=== PATIENT | male | born 1950 | race Caucasian/White ===

== ENCOUNTER → 2018-03-05 | Outpatient (CLI) | payer OTHER ==
[~2018-03-05] MED LIST: AMLO5TAB4 PO; ASPI-621 PO; ATOR20TA9 PO; BUPR150T73 PO; DULO60CA7 PO; FLUT9.9S INH; HYDR25TA6 PO; LEVO88TA4 PO; METO50TA4 PO
== END | disposition home or self-care (01) ==
LOC: CFH 09:18
PROVIDERS: ATTEND Nurse Practitioner Family
DX: Z12.2 Encounter for screening for malignant neoplasm of respiratory organs (principal); F17.210 Nicotine dependence, cigarettes, uncomplicated
CPT/HCPCS: 93978; G0297

== ENCOUNTER → 2018-03-19 | Outpatient (CLI) | payer BC, OTHER | END | disposition home or self-care (01) | LOC: CFH 13:43 | PROVIDERS: ATTEND Physician Assistant | DX: I07.1 Rheumatic tricuspid insufficiency (principal); I35.8 Other nonrheumatic aortic valve disorders; I10 Essential (primary) hypertension; E78.5 Hyperlipidemia, unspecified; Z95.0 Presence of cardiac pacemaker; Z72.0 Tobacco use | CPT/HCPCS: 93306 ==

== ENCOUNTER 2018-05-29 09:23 | Observation (INO) | payer OTHER ==
[~2018-05-29] VITALS: Ht 180.3 cm; Wt 92.2 kg
[2018-05-29] MEDS ORDERED: NITROGLYCERIN SINGLE TAB 0.4 MG SL ONE (09:54)
[2018-05-29] MEDS ORDERED: ASPIRIN 81 MG TABLET CHEW ONE (09:54)
[2018-05-29] MEDS: NITROGLYCERIN SINGLE TAB 0.4 MG SL PRN ×3 (09:56→10:07)
[2018-05-29] MEDS ORDERED: ASPIRIN 81 MG TABLET CHEW PO ONE (10:00)
[2018-05-29] MEDS ORDERED: SODIUM CHLORIDE FLUSH 10ML SYR IVF ONE (10:00)
[2018-05-29 10:25] LABS: BASOPHILS # (AUTO) 0.03 x10^3/uL (0-0.1); BASOPHILS % (AUTO) 0 % (0-1); EOSINOPHILS # (AUTO) 0.09 x10^3/uL (0-0.4); EOSINOPHILS % (AUTO) 1 % (1-7); LYMPHOCYTES # (AUTO) 1.62 x10^3/uL (1-3.4); LYMPHOCYTES % (AUTO) 19 % (22-44); MD NO; MEAN CORPUSCULAR HEMOGLOBIN 29.7 pg (27.5-34.5); MEAN CORPUSCULAR HGB CONC 34.3 g/dL (33.2-36.2); MEAN CORPUSCULAR VOLUME 86.7 fL (81-97); MEAN PLATELET VOLUME 8.5 fL (7.4-10.4); MONOCYTES # (AUTO) 0.54 x10^3/uL (0.2-0.8); MONOCYTES % (AUTO) 6 % (2-9); NEUTROPHILS # (AUTO) 6.22 x10^3/uL (1.8-6.8); NEUTROPHILS % (AUTO) 73 % (42-75); PLATELET COUNT 187 x10^3/uL (130-400); RED CELL DISTRIBUTION WIDTH 14.1 % (9.4-14.8)
[2018-05-29 10:31] LABS: ALBUMIN 4.3 g/dL (3.4-5.0); ANION GAP 9 mmol/L (5-15); CALCIUM 8.4 mg/dL (8.5-10.1); CHLORIDE 106 mmol/L (98-107)
[2018-05-29 10:36] LABS: ALANINE AMINOTRANSFERASE 19 U/L (12-78); ALKALINE PHOSPHATASE 120 U/L (45-117); BILIRUBIN,TOTAL 0.5 mg/dL (0.2-1.0); CREATININE 1.25 mg/dL (0.7-1.3); TOTAL PROTEIN 7.6 g/dL (6.4-8.2); TROPONIN I < 0.015 ng/mL (0.000-0.045)
[2018-05-29 10:39] LABS: INTERNATIONAL NORMALIZED RATIO 1.04 (0.93-1.1); PROTHROMBIN TIME 10.7 Seconds (9.6-11.5)
[2018-05-29] MEDS ORDERED: SODIUM CHLORIDE FLUSH 10ML SYR IVF PRN (12:00)
[2018-05-29 12:21] VITALS: BP 147/87
[2018-05-29] MEDS ORDERED: ACETAMINOPHEN 325 MG TABLET ONE (12:26)
[2018-05-29] MEDS ORDERED: HEPARIN 5,000 UNITS/ML, 1ML ONE (12:26)
[2018-05-29] MEDS ORDERED: ACETAMINOPHEN 325 MG TABLET PO PRN (12:30)
[2018-05-29] MEDS ORDERED: ONDANSETRON 2MG/ML, 2ML IVPush PRN (12:30)
[2018-05-29] MEDS ORDERED: NITROGLYCERIN 0.4 MG/SPRAY SL PRN (12:30)
[2018-05-29] MEDS ORDERED: MORPHINE SULFATE 4 MG/ML, 1ML IVPush PRN (12:30)
[2018-05-29] MEDS: HEPARIN 5,000 UNITS/ML, 1ML SQ SCH ×2 (12:33→21:43)
[2018-05-29 13:05] LABS: TROPONIN I < 0.015 ng/mL (0.000-0.045)
[2018-05-29] MEDS ORDERED: NAPR220C2 PO (15:24)
[2018-05-29] MEDS ORDERED: NICOTINE 21 MG/24 HR PATCH.TD24 TD SCH (18:00)
[2018-05-29 18:13] LABS: TROPONIN I < 0.015 ng/mL (0.000-0.045)
[2018-05-29 19:04] VITALS: BP 145/81
[2018-05-30 00:48] VITALS: BP 152/83
[2018-05-30] MEDS: HEPARIN 5,000 UNITS/ML, 1ML SQ SCH (05:03)
[2018-05-30 05:45] LABS: CHOL/HDL RATIO 4.6; LDL/HDL RATIO 3.1 (0.5-3.0)
[2018-05-30] MEDS ORDERED: ASPIRIN 325 MG TABLET EC PO SCH (06:00)
[2018-05-30] MEDS ORDERED: LEVOTHYROXINE 88 MCG TABLET PO SCH (06:00)
[2018-05-30 07:10] VITALS: BP 144/96
[2018-05-30] MEDS ORDERED: METOPROLOL SUCCINATE 50 MG TAB.ER.24H PO SCH (09:00)
[2018-05-30] MEDS ORDERED: ISOSORBIDE DINITRATE 10 MG TABLET PO SCH (09:00)
[2018-05-30] MEDS ORDERED: REGADENOSON 0.4 MG/5 ML SYRINGE ONE (09:22)
[2018-05-30] MEDS ORDERED: ISOS10TA2 PO (10:01)
[2018-05-30] MEDS ORDERED: NICO-487 TD (10:01)
[2018-05-30] MEDS ORDERED: HYDR-3341 PO (10:01)
== END 2018-05-30 12:50 | disposition home or self-care (01) ==
LOC: ED 10:15 → EDIP 11:36 → INTOOBSV 11:36 → 5SO 12:18 → DCLOUNGE 05-30 12:37
PROVIDERS: ADMIT Hospitalist; ATTEND Hospitalist
DX: R07.89 Other chest pain (principal); G47.00 Insomnia, unspecified; E03.9 Hypothyroidism, unspecified; E78.5 Hyperlipidemia, unspecified; I10 Essential (primary) hypertension; I73.9 Peripheral vascular disease, unspecified; R57.9 Shock, unspecified; Z86.73 Personal history of transient ischemic attack (TIA), and cerebral infarction without residual deficits
CPT/HCPCS: 36415; 71045; 78452; 80053; 80061; 84484; 85025; 85610; 85730; 93005; 93017; 96372; 99285; A9502; C9898; G0378; J1644; J2785

== ENCOUNTER 2018-09-12 11:47 | Emergency (ER) | payer OTHER ==
[~2018-09-12] VITALS: Ht 180.3 cm; Wt 86.0 kg
[~2018-09-12 11:47] MED LIST changes: -ASPI-621 PO; +ASPI81TA45 PO; +ATOR20TA37 PO; -ATOR20TA9 PO; +HYDR-3341 PO; +ISOS10TA2 PO; +NAPR220C2 PO; +NICO-487 TD
[2018-09-12 12:02] VITALS: BP 139/91
[2018-09-12 12:31] LABS: AMPHETAMINE SCREEN, URINE Negative (Negative); BARBITURATE SCREEN, URINE Negative (Negative); BENZODIAZEPINE SCREEN, URINE Negative (Negative); CANNABINOID SCREEN, URINE Negative (Negative); COCAINE SCREEN, URINE Negative (Negative); METHADONE SCREEN, URINE Negative (Negative); OPIATE SCREEN, URINE Negative (Negative)
[2018-09-12 12:35] LABS: BASOPHILS # (AUTO) 0.05 x10^3/uL (0-0.1); BASOPHILS % (AUTO) 1 % (0-1); EOSINOPHILS # (AUTO) 0.11 x10^3/uL (0-0.4); EOSINOPHILS % (AUTO) 2 % (1-7); LYMPHOCYTES # (AUTO) 1.32 x10^3/uL (1-3.4); LYMPHOCYTES % (AUTO) 18 % (22-44); MD NO; MEAN CORPUSCULAR HEMOGLOBIN 29.7 pg (27.5-34.5); MEAN CORPUSCULAR HGB CONC 34.3 g/dL (33.2-36.2); MEAN CORPUSCULAR VOLUME 86.8 fL (81-97); MEAN PLATELET VOLUME 8.4 fL (7.4-10.4); MONOCYTES # (AUTO) 0.49 x10^3/uL (0.2-0.8); MONOCYTES % (AUTO) 7 % (2-9); NEUTROPHILS # (AUTO) 5.39 x10^3/uL (1.8-6.8); NEUTROPHILS % (AUTO) 73 % (42-75); PLATELET COUNT 174 x10^3/uL (130-400); RED BLOOD COUNT 4.82 x10^6/uL (4.38-5.82); RED CELL DISTRIBUTION WIDTH 14.7 % (9.4-14.8)
[2018-09-12 12:44] LABS: ANION GAP 7 mmol/L (5-15); CALCIUM 8.1 mg/dL (8.5-10.1); CHLORIDE 108 mmol/L (98-107); CREATININE 1.22 mg/dL (0.7-1.3)
[2018-09-12 12:45] LABS: ALANINE AMINOTRANSFERASE 19 U/L (12-78); ALBUMIN 3.9 g/dL (3.4-5.0); SALICYLATE LEVEL 3.6 mg/dL (2.8-20.0)
[2018-09-12 12:47] LABS: ALKALINE PHOSPHATASE 105 U/L (45-117); BILIRUBIN,TOTAL 0.6 mg/dL (0.2-1.0); TOTAL PROTEIN 6.9 g/dL (6.4-8.2)
[2018-09-12 12:49] LABS: ACETAMINOPHEN < 2 mcg/mL (10-30)
== END 2018-09-12 15:13 | disposition home or self-care (01) ==
LOC: ED 12:11
DX: F32.1 Major depressive disorder, single episode, moderate (principal); E78.5 Hyperlipidemia, unspecified; Z86.73 Personal history of transient ischemic attack (TIA), and cerebral infarction without residual deficits; I10 Essential (primary) hypertension; Z95.0 Presence of cardiac pacemaker
CPT/HCPCS: 36415; 80053; 80307; 80329; 85025; 99284; G0480

== ENCOUNTER 2019-07-24 07:49 | Outpatient (CLI) | payer MEDICARE ==
[2019-07-24] MEDS ORDERED: FURO20TA3 PO (09:11)
[2019-07-24] MEDS ORDERED: HYDR-3341 PO (09:11)
[2019-07-24] MEDS ORDERED: ATOR20TA86 PO (09:11)
[2019-07-24] MEDS ORDERED: ISOS20TA58 PO (09:11)
[2019-07-24] MEDS ORDERED: VENL37.57 PO (09:11)
[2019-07-24 09:21] LABS: BASOPHILS # (AUTO) 0.04 x10^3/uL (0-0.1); BASOPHILS % (AUTO) 1 % (0-1); EOSINOPHILS # (AUTO) 0.17 x10^3/uL (0-0.4); EOSINOPHILS % (AUTO) 2 % (1-7); LYMPHOCYTES # (AUTO) 1.33 x10^3/uL (1-3.4); LYMPHOCYTES % (AUTO) 18 % (22-44); MD NO; MEAN CORPUSCULAR HEMOGLOBIN 29.6 pg (27.5-34.5); MEAN CORPUSCULAR HGB CONC 33.4 g/dL (33.2-36.2); MEAN CORPUSCULAR VOLUME 88.7 fL (81-97); MEAN PLATELET VOLUME 8.1 fL (7.4-10.4); MONOCYTES # (AUTO) 0.51 x10^3/uL (0.2-0.8); MONOCYTES % (AUTO) 7 % (2-9); NEUTROPHILS # (AUTO) 5.27 x10^3/uL (1.8-6.8); NEUTROPHILS % (AUTO) 72 % (42-75); PLATELET COUNT 171 x10^3/uL (130-400); RED BLOOD COUNT 4.69 x10^6/uL (4.38-5.82); RED CELL DISTRIBUTION WIDTH 14.2 % (9.4-14.8)
[2019-07-24 09:32] LABS: INTERNATIONAL NORMALIZED RATIO 1.04 (0.93-1.1); PROTHROMBIN TIME 10.9 Seconds (9.6-11.5)
[2019-07-24 09:38] LABS: ALANINE AMINOTRANSFERASE 16 U/L (12-78); ALBUMIN 3.7 g/dL (3.4-5.0); ANION GAP 7 mmol/L (5-15); CALCIUM 8.5 mg/dL (8.5-10.1); CHLORIDE 112 mmol/L (98-107); CREATININE 1.17 mg/dL (0.7-1.3)
[2019-07-24 09:40] LABS: ALKALINE PHOSPHATASE 106 U/L (45-117); BILIRUBIN,TOTAL 0.6 mg/dL (0.2-1.0); TOTAL PROTEIN 6.7 g/dL (6.4-8.2)
[2019-07-24 13:28] LABS: HEMOGLOBIN A1C 5.6 % (4.2-6.3)
== END 2019-07-24 23:59 | disposition home or self-care (01) ==
LOC: STAR 07:49
PROVIDERS: ATTEND Orthopaedic Surgery
DX: Z01.818 Encounter for other preprocedural examination (principal); M17.12 Unilateral primary osteoarthritis, left knee
CPT/HCPCS: 36415; 80053; 83036; 85025; 85610; 85730; 87081; 93005

== ENCOUNTER → 2019-09-09 | Outpatient (CLI) | payer MEDICARE ==
[~2019-09-09] MED LIST changes: +APIX5TAB PO; +ASPI-515 PO; +ATOR20TA86 PO; +FURO20TA3 PO; +ISOS20TA58 PO; +MELO7.5T31 PO; +METO-93 PO; +OXYC5TAB3 PO; +TRAM50TA2 PO; +VENL37.57 PO
== END | disposition home or self-care (01) ==
LOC: CFH 07:24
PROVIDERS: ATTEND Internal Medicine Cardiovascular Disease
DX: I07.1 Rheumatic tricuspid insufficiency (principal); R55 Syncope and collapse
CPT/HCPCS: 93306

== ENCOUNTER 2019-10-08 13:48 | Emergency (ER) | payer MEDICARE ==
[~2019-10-08] VITALS: Ht 180.3 cm; Wt 90.0 kg
--- NOTE | 2019-10-08 14:03 | NUR ---
BIB EMS FROM WORK. PT WITH SUDDEN ONSET OF LIGHTHEADED FEELING WITH A BREIF SHARP PAIN IN LEFT ARM. DENIES CP. EMS RPTS BP OF 180/90 AND FSBS = 81. PT ON BP, ECG, SP02 MONITORING. DR MARTINEZ AT BEDSIDE, POSTURAL BP WITH DROP IN BP OF 143/95 WHILE STANDING. PT ASSESSMENT POC DISCUSSED AND ORDERS REC'D. CALL LIGHT W/I REACH. NAD NOTED. FRIEND AT [facility].
[2019-10-08] MEDS ORDERED: LORazepam 2 MG/ML, 1ML IV ONE (14:30)
[2019-10-08 14:33] LABS: BASOPHILS # (AUTO) 0.06 x10^3/uL (0-0.1); BASOPHILS % (AUTO) 1 % (0-1); EOSINOPHILS # (AUTO) 0.16 x10^3/uL (0-0.4); EOSINOPHILS % (AUTO) 2 % (1-7); LYMPHOCYTES # (AUTO) 1.35 x10^3/uL (1-3.4); LYMPHOCYTES % (AUTO) 12 % (22-44); MD NO; MEAN CORPUSCULAR HEMOGLOBIN 27.5 pg (27.5-34.5); MEAN CORPUSCULAR HGB CONC 32.7 g/dL (33.2-36.2); MEAN CORPUSCULAR VOLUME 84.2 fL (81-97); MEAN PLATELET VOLUME 7.6 fL (7.4-10.4); MONOCYTES # (AUTO) 0.56 x10^3/uL (0.2-0.8); MONOCYTES % (AUTO) 5 % (2-9); NEUTROPHILS # (AUTO) 8.99 x10^3/uL (1.8-6.8); NEUTROPHILS % (AUTO) 81 % (42-75); PLATELET COUNT 212 x10^3/uL (130-400); RED BLOOD COUNT 4.61 x10^6/uL (4.38-5.82); RED CELL DISTRIBUTION WIDTH 15.5 % (9.4-14.8)
[2019-10-08 14:41] LABS: ALBUMIN 3.6 g/dL (3.4-5.0); ANION GAP 3 mmol/L (5-15); CALCIUM 8.7 mg/dL (8.5-10.1); CHLORIDE 108 mmol/L (98-107); CREATININE 1.13 mg/dL (0.7-1.3)
[2019-10-08] MEDS ORDERED: LORazepam 2 MG/ML, 1ML ONE (14:57)
[2019-10-08] MEDS ORDERED: SODIUM CHLORIDE FLUSH 10ML SYR IVF ONE (15:00)
[2019-10-08] MEDS ORDERED: SODIUM CHLORIDE 0.9% 1,000ML IVBOLUS ONE (15:00)
--- NOTE | 2019-10-08 15:27 | NUR ---
ASSUMED CARE OF PT FROM HELEN ROSALES.
--- NOTE | 2019-10-08 15:39 | NUR ---
Attempted to ambulated pt before d/c. Pt initally unsteady and had to catch brace himself by holding onto the counter top. Pt then was able to standy without problems. Pt denies S/Sx. Pt remains on monitors.
[2019-10-08 16:25] VITALS: BP 156/103
--- NOTE | 2019-10-08 16:25 | NUR ---
Ortho BP's done: flat 153/88 sitting 145/94 standing 156/103 Pt had steady gait when standing and denied s/sx.
--- NOTE | 2019-10-08 16:58 | NUR ---
Pt d/c'd to self care. Pt ambulatory without dizziness at this time. Education provided on follow-up, prescrptions and S/Sx to return. Pt and MANSI.
== END 2019-10-08 17:01 | disposition home or self-care (01) ==
LOC: ED 14:55
DX: E86.0 Dehydration (principal); I10 Essential (primary) hypertension; I25.10 Atherosclerotic heart disease of native coronary artery without angina pectoris; Z86.39 Personal history of other endocrine, nutritional and metabolic disease
CPT/HCPCS: 36415; 80048; 82040; 83735; 85025; 93005; 96361; 96374; 99284; J2060; J7030

== ENCOUNTER 2020-05-09 18:58 | Emergency (ER) | payer MEDICARE ==
[~2020-05-09] VITALS: Ht 180.3 cm; Wt 93.1 kg
--- NOTE | 2020-05-09 19:23 | NUR ---
THIS IS A 69Y M THAT COMES IN FOR COUGH X1DAY AFTER COVID EXPOSURE 10 DAYS AGO AT WORK. PT ABLE TO SPEAK IN FULL SENTENCES NADN. CALL LIGHT IN REACH CONNECTED TO ALL MONITORING. VSS
[2020-05-09 19:25] VITALS: BP 135/81
[2020-05-09 19:46] LABS: BASOPHILS # (AUTO) 0.04 x10^3/uL (0-0.1); BASOPHILS % (AUTO) 1 % (0-1); EOSINOPHILS # (AUTO) 0.21 x10^3/uL (0-0.4); EOSINOPHILS % (AUTO) 3 % (1-7); LYMPHOCYTES # (AUTO) 1.51 x10^3/uL (1-3.4); LYMPHOCYTES % (AUTO) 21 % (22-44); MD NO; MEAN CORPUSCULAR HEMOGLOBIN 28.7 pg (27.5-34.5); MEAN CORPUSCULAR HGB CONC 32.7 g/dL (33.2-36.2); MEAN CORPUSCULAR VOLUME 87.9 fL (81-97); MEAN PLATELET VOLUME 7.8 fL (7.4-10.4); MONOCYTES % (AUTO) 7 % (2-9); NEUTROPHILS # (AUTO) 5.06 x10^3/uL (1.8-6.8); NEUTROPHILS % (AUTO) 69 % (42-75); PLATELET COUNT 205 x10^3/uL (130-400); RED BLOOD COUNT 4.48 x10^6/uL (4.38-5.82); RED CELL DISTRIBUTION WIDTH 14.8 % (9.4-14.8)
[2020-05-09 19:59] LABS: ALBUMIN 3.3 g/dL (3.4-5.0); ANION GAP 6 mmol/L (5-15); CALCIUM 8.1 mg/dL (8.5-10.1); CHLORIDE 112 mmol/L (98-107); CREATININE 1.19 mg/dL (0.7-1.3)
[2020-05-09 20:03] LABS: TROPONIN I < 0.015 ng/mL (0.000-0.045)
--- NOTE | 2020-05-09 21:08 | NUR ---
Patient/Caregiver given discharge instructions and they have confirmed that they understand the instructions. Patient ambulatory with steady gait.
== END 2020-05-09 21:09 | disposition home or self-care (01) ==
LOC: ED 20:01
DX: R07.2 Precordial pain (principal); Z20.828 Contact with and (suspected) exposure to other viral communicable diseases; R06.00 Dyspnea, unspecified; R05 Cough; I10 Essential (primary) hypertension; E78.5 Hyperlipidemia, unspecified; I25.10 Atherosclerotic heart disease of native coronary artery without angina pectoris; F17.210 Nicotine dependence, cigarettes, uncomplicated; Z86.73 Personal history of transient ischemic attack (TIA), and cerebral infarction without residual deficits; Z95.0 Presence of cardiac pacemaker
CPT/HCPCS: 36415; 71045; 80048; 82040; 83880; 84484; 85025; 87635; 93005; 99285; 99406

== ENCOUNTER → 2020-11-09 | Outpatient (CLI) | payer MEDICARE ==
[~2020-11-09] MED LIST changes: -ASPI-515 PO; +ASPI-963 PO; -NICO-487 TD; +NICO-587 TD; -OXYC5TAB3 PO; +OXYC5TAB98 PO
== END | disposition home or self-care (01) ==
LOC: CVU 11:13
PROVIDERS: ATTEND Internal Medicine Cardiovascular Disease
DX: Z01.810 Encounter for preprocedural cardiovascular examination (principal); I08.3 Combined rheumatic disorders of mitral, aortic and tricuspid valves; I11.9 Hypertensive heart disease without heart failure
CPT/HCPCS: 93306

== ENCOUNTER 2020-12-03 07:55 | Outpatient (CLI) | payer MEDICARE ==
[~2020-12-03 07:55] MED LIST changes: +REGADENOSON 0.4 MG/5 ML SYRINGE ONE
[2020-12-31] MEDS ORDERED: METO-93 PO (13:20)
[2020-12-31] MEDS ORDERED: AMLO-150 PO (13:20)
[2020-12-31] MEDS ORDERED: RIVA20TA PO (13:20)
== END 2020-12-03 23:59 | disposition home or self-care (01) ==
LOC: CFH 07:55
PROVIDERS: ATTEND Student in an Organized Health Care Education/Training Program
DX: Z02.9 Encounter for administrative examinations, unspecified (principal)
CPT/HCPCS: J2785

== ENCOUNTER 2020-12-03 08:00 | Outpatient (CLI) | payer MEDICARE ==
[2020-12-03] MEDS ORDERED: REGADENOSON 0.4 MG/5 ML SYRINGE ONE (10:00)
== END 2020-12-03 23:59 | disposition home or self-care (01) ==
LOC: CFH 08:00
DX: Z01.810 Encounter for preprocedural cardiovascular examination (principal); I25.10 Atherosclerotic heart disease of native coronary artery without angina pectoris; I42.9 Cardiomyopathy, unspecified
CPT/HCPCS: 78452; 93017; A9502; J2785

== ENCOUNTER → 2020-12-31 | Outpatient (CLI) | payer MEDICARE ==
[~2020-12-31] MED LIST changes: +AMLO-150 PO; -REGADENOSON 0.4 MG/5 ML SYRINGE ONE; +RIVA20TA PO
[2020-12-31 10:03] LABS: ALBUMIN 3.7 g/dL (3.4-5.0); ANION GAP 2 mmol/L (5-15); CALCIUM 8.5 mg/dL (8.5-10.1); CHLORIDE 106 mmol/L (98-107)
[2020-12-31 10:09] LABS: ALANINE AMINOTRANSFERASE 12 U/L (12-78); ALKALINE PHOSPHATASE 135 U/L (45-117); BILIRUBIN,TOTAL 0.5 mg/dL (0.2-1.0); CREATININE 1.42 mg/dL (0.7-1.3); TOTAL PROTEIN 7.3 g/dL (6.4-8.2)
[2020-12-31 10:12] LABS: INTERNATIONAL NORMALIZED RATIO 1.28 (0.93-1.1); PROTHROMBIN TIME 13.6 Seconds (9.6-11.5)
[2020-12-31 10:14] LABS: BASOPHILS % (AUTO) 1 % (0-1); EOSINOPHILS % (AUTO) 2 % (1-7); LYMPHOCYTES % (AUTO) 18 % (22-44); MEAN CORPUSCULAR HEMOGLOBIN 29.2 pg (27.5-34.5); MEAN CORPUSCULAR HGB CONC 34.2 g/dL (33.2-36.2); MEAN PLATELET VOLUME 7.9 fL (7.4-10.4); MONOCYTES % (AUTO) 8 % (2-9); NEUTROPHILS % (AUTO) 72 % (42-75); PLATELET COUNT 228 x10^3/uL (130-400); RED BLOOD COUNT 4.54 x10^6/uL (4.38-5.82); RED CELL DISTRIBUTION WIDTH 15.2 % (9.4-14.8)
[2020-12-31 10:15] LABS: MD NO
== END | disposition home or self-care (01) ==
LOC: STAR 08:19
PROVIDERS: ATTEND Orthopaedic Surgery
DX: Z01.812 Encounter for preprocedural laboratory examination (principal); Z20.822 Contact with and (suspected) exposure to COVID-19; M16.12 Unilateral primary osteoarthritis, left hip; Z79.01 Long term (current) use of anticoagulants
CPT/HCPCS: 36415; 80053; 83036; 85025; 85610; 85730; 87081; 93005; U0003

== ENCOUNTER 2021-01-06 10:19 | Day surgery (SDC) | payer MEDICARE ==
[~2021-01-06] VITALS: Ht 180.3 cm; Wt 93.0 kg
[2021-01-06 11:08] VITALS: BP 116/76
[2021-01-06] MEDS ORDERED: CHLORHEXIDINE 15 ML UDC ONE (11:13)
[2021-01-06] MEDS ORDERED: OXYcodone 5 MG/5 ML ORAL.SOL UDC PO PRN (11:30)
[2021-01-06] MEDS ORDERED: METHOCARBAMOL 1,000 MG in DEXTROSE 5% 100 ML IV PRN (11:30)
[2021-01-06] MEDS ORDERED: GABAPENTIN 300 MG CAPSULE PO ONE (11:30)
[2021-01-06] MEDS ORDERED: ACETAMINOPHEN 500 MG TABLET PO ONE (11:30)
[2021-01-06] MEDS ORDERED: PROMETHAZINE 25 MG/ML, 1ML IVPush PRN (11:30)
[2021-01-06] MEDS ORDERED: CHLORHEXIDINE 15 ML UDC PO ONE (11:30)
[2021-01-06] MEDS ORDERED: ONDANSETRON 2MG/ML, 2ML IVPush PRN (11:30)
[2021-01-06] MEDS ORDERED: EPHEDRINE 50 MG/ML, 1ML IVPush PRN (11:30)
[2021-01-06] MEDS ORDERED: LACTATED RINGERS 1,000 ML IV SCH (11:30)
[2021-01-06] MEDS ORDERED: hydrALAzine 20 MG/ML, 1ML IV PRN (11:30)
[2021-01-06] MEDS ORDERED: HYDROmorphone 1 MG/ML, 1ML INJ IVPush PRN (11:30)
[2021-01-06] MEDS ORDERED: MEPERIDINE/PF 25MG/0.5ML IVPush PRN (11:30)
[2021-01-06] MEDS ORDERED: ACETAMINOPHEN 325 MG TABLET PO PRN (11:30)
[2021-01-06] MEDS ORDERED: LABETALOL 5MG/ML, 20ML IV PRN (11:30)
[2021-01-06] MEDS ORDERED: LORazepam 2 MG/ML, 1ML IVPush PRN (11:30)
[2021-01-06] MEDS ORDERED: FENTANYL PF 100 MCG/2ML IV PRN (11:30)
[2021-01-06] MEDS ORDERED: MIDAZOLAM 1 MG/ML, 2ML ONE (12:02)
[2021-01-06] MEDS ORDERED: FENTANYL PF 250 MCG/5ML ONE ×2 (12:02→12:53)
[2021-01-06] MEDS ORDERED: KETOROLAC 60 MG/2 ML ONE (12:16)
[2021-01-06] MEDS ORDERED: TRANEXAMIC ACID 100 MG/ML, 10ML ONE ×2 (12:16)
[2021-01-06] MEDS ORDERED: ROPIvacaine/PF 0.5%, 20 ML ONE (12:17)
[2021-01-06] MEDS ORDERED: ROPIvacaine/PF 0.5%, 30 ML ONE (12:17)
[2021-01-06] MEDS ORDERED: EPINEPHRINE 1 MG/ML, 1ML ONE (12:17)
[2021-01-06] MEDS ORDERED: SODIUM CHLORIDE 0.9% 50 ML ONE (12:17)
[2021-01-06] MEDS ORDERED: VANCOMYCIN 1,000 MG ONE (12:17)
[2021-01-06] MEDS ORDERED: BISACODYL 10 MG SUPP PR PRN (12:30)
[2021-01-06] MEDS ORDERED: DIPHENHYDRAMINE 50 MG CAPSULE PO PRN (12:30)
[2021-01-06] MEDS ORDERED: SUCCINYLCHOLINE 20 MG/ML, 10ML ONE (12:30)
[2021-01-06] MEDS ORDERED: ONDANSETRON 2MG/ML, 2ML ONE (12:30)
[2021-01-06] MEDS ORDERED: SENNA/DOCUSATE TABLET PO PRN (12:30)
[2021-01-06] MEDS ORDERED: ONDANSETRON 2MG/ML, 2ML IV PRN (12:30)
[2021-01-06] MEDS ORDERED: CEFAZOLIN PMX 2GM/50ML 50 ML IVPB SCH (12:30)
[2021-01-06] MEDS ORDERED: NEOSTIGMINE 1 MG/ML, 10ML ONE (12:30)
[2021-01-06] MEDS ORDERED: NS + 20MEQ KCL 1,000 ML IV SCH (12:30)
[2021-01-06] MEDS ORDERED: CEFAZOLIN 1,000 MG ONE (12:30)
[2021-01-06] MEDS ORDERED: HYDROcodone/APAP 5/325 TABLET PO PRN (12:30)
[2021-01-06] MEDS ORDERED: PROPOFOL 10 MG/ML, 20ML ONE (12:30)
[2021-01-06] MEDS ORDERED: ZOLPIDEM 5MG TABLET PO PRN (12:30)
[2021-01-06] MEDS ORDERED: ACETAMINOPHEN 650 MG/20.3 ML UDC PO PRN (12:30)
[2021-01-06] MEDS ORDERED: OXYcodone IR 5MG TABLET PO PRN (12:30)
[2021-01-06] MEDS ORDERED: MAGNESIUM HYDROXIDE 8%, 30ML UDC PO PRN (12:30)
[2021-01-06] MEDS ORDERED: GLYCOPYRROLATE 0.2MG/1ML, 5ML ONE (12:30)
[2021-01-06] MEDS ORDERED: ROCURONIUM 10MG/ML,5ML ONE (12:30)
[2021-01-06] MEDS ORDERED: ONDANSETRON 4 MG TABLET PO PRN (12:30)
[2021-01-06] MEDS ORDERED: OXYcodone 5 MG/5 ML ORAL.SOL UDC ONE (14:02)
[2021-01-06] MEDS ORDERED: FENTANYL PF 100 MCG/2ML ONE (14:02)
[2021-01-06] MEDS ORDERED: ACETAMINOPHEN 650 MG/20.3 ML UDC ONE (14:02)
[2021-01-06] MEDS ORDERED: KETAMINE 10 MG/ML, 20ML ONE (16:39)
[2021-01-06] MEDS ORDERED: DEXAMETHASONE 4 MG/ML, 1ML ONE (16:39)
[2021-01-06] MEDS ORDERED: ASPIRIN 81 MG TABLET EC PO SCH (18:00)
[2021-01-06] MEDS ORDERED: VENLAFAXINE 37.5MG TABLET PO SCH (21:00)
[2021-01-06] MEDS ORDERED: DOCUSATE 100 MG CAPSULE PO SCH (21:00)
[2021-01-07] MEDS ORDERED: DEXAMETHASONE 4 MG/ML, 1ML IVPush SCH (06:00)
[2021-01-07] MEDS ORDERED: LEVOTHYROXINE 88 MCG TABLET PO SCH (09:00)
[2021-01-07] MEDS ORDERED: METOPROLOL SUCCINATE 50 MG TAB.ER.24H PO SCH (09:00)
[2021-01-07] MEDS ORDERED: FUROSEMIDE 20 MG TABLET PO SCH (09:00)
[2021-01-07] MEDS ORDERED: AMLODIPINE 5 MG TABLET PO SCH (09:00)
== END 2021-01-06 19:15 | disposition home or self-care (01) ==
LOC: OUT 10:19
PROVIDERS: ATTEND Orthopaedic Surgery
DX: M16.12 Unilateral primary osteoarthritis, left hip (principal); M25.552 Pain in left hip; I10 Essential (primary) hypertension; F17.210 Nicotine dependence, cigarettes, uncomplicated; Z79.899 Other long term (current) drug therapy; Z79.01 Long term (current) use of anticoagulants; Z95.0 Presence of cardiac pacemaker; Z86.718 Personal history of other venous thrombosis and embolism; Z98.890 Other specified postprocedural states
CPT/HCPCS: 27130; 73501; 73502; 97162; C1713; C1776; J0171; J0330; J0690; J1885; J2250; J2405; J2704; J2710; J2795; J3010; J3370; J7120; 76000; J1100